=== PATIENT | male | born 1950 | race African-American/Black ===

== ENCOUNTER 2017-10-27 15:55 | Emergency (ER) | payer MEDICARE, MEDICAID ==
[~2017-10-27] VITALS: Ht 188 cm; Wt 113.0 kg
[~2017-10-27 15:55] MED LIST: AMLO10TA4 PO; APIX5TAB PO; ARIP30TA2 PO; ASPI-1159 PO; ATOR20TA PO; CHOL20004 PO; LEVO137T2 PO; LOSA50TA20 PO
[2017-10-27 17:40] LABS: EOSINOPHILS % 3.4 % (0.0-5.0); LYMPHOCYTES % 29.6 % (20.0-50.0); MEAN CORPUSCULAR HEMOGLOBIN 27.9 pg (28.0-32.0); MEAN CORPUSCULAR VOLUME 85.8 fL (80.0-94.0); MEAN PLATELET VOLUME 9.3 fl (7.4-10.4); MONOCYTES % 9.7 % (2.0-8.0); NEUTROPHILS % 56.3 % (40.0-76.0); PLATELET 211 x1000/uL (130-400); RED BLOOD CELL COUNT 4.31 mill/uL (4.7-6.1); RED CELL DISTRIBUTION WIDTH 13.2 % (11.6-14.6)
[2017-10-27 17:45] LABS: CHLORIDE 108 mEq/L (98-107)
[2017-10-27 17:52] LABS: INR 1.1; PARTIAL THROMBOPLASTIN TIME 28.7 sec (23.4-31.0); PROTHROMBIN TIME 10.7 sec (9.1-11.1)
[2017-10-27 20:49] VITALS: BP 128/78
== END 2017-10-27 20:51 | disposition home or self-care (01) ==
LOC: ER 15:55
DX: E87.5 Hyperkalemia (principal); E11.9 Type 2 diabetes mellitus without complications; I10 Essential (primary) hypertension; E03.9 Hypothyroidism, unspecified; Z95.0 Presence of cardiac pacemaker; Z79.82 Long term (current) use of aspirin
CPT/HCPCS: 36415; 71045; 80053; 84484; 85025; 85610; 85730; 93005; 99285

== ENCOUNTER 2021-12-08 15:49 | Inpatient (IN) | payer MEDICARE, MEDICAID ==
[~2021-12-08] VITALS: Ht 185.4 cm; Wt 99.8 kg
[~2021-12-08 15:49] MED LIST changes: -ASPI-1159 PO; +ASPI-1497 PO; -LOSA50TA20 PO; +LOSA50TA41 PO
[2021-12-08] MEDS ORDERED: MAGNESIUM/ALUMINUM HYDROXIDE/SIMETHICONE 30ML UDC PO STA (17:00)
[2021-12-08] MEDS ORDERED: SODIUM CHLORIDE 0.9% 1,000 ML IV ONE (17:00)
[2021-12-08] MEDS ORDERED: ONDANSETRON HCL 4MG/2ML INJ IV STA (17:00)
[2021-12-08 17:16] LABS: BASOPHILS % 0.3 % (0.0-2.0); EOSINOPHILS % 2.3 % (0.0-5.0); HEMATOCRIT. 34.3 % (42.0-52.0); HEMOGLOBIN. 10.8 g/dL (14.0-18.0); LYMPHOCYTES % 16.3 % (20.0-50.0); MEAN CORPUSCULAR HEMOGLOBIN 27.6 pg (28.0-32.0); MEAN PLATELET VOLUME 9.2 fl (7.4-10.4); MONOCYTES % 10.2 % (2.0-8.0); NEUTROPHILS % 70.9 % (40.0-76.0); PLATELET 215 x1000/uL (130-400); RED CELL DISTRIBUTION WIDTH 14.4 % (11.6-14.6)
[2021-12-08 17:30] LABS: INR 1.1; PROTHROMBIN TIME 11.5 sec (9.6-11.0)
[2021-12-08 17:38] LABS: CHLORIDE 107 mEq/L (98-107); ETHANOL BLOOD < 10 mg/dL
[2021-12-08] MEDS ORDERED: CEFTRIAXONE 1 G PREMIX 50 ML IV NR (19:45)
[2021-12-08] MEDS ORDERED: CLONIDINE 0.1MG TABLET PO PRN (21:15)
[2021-12-08] MEDS ORDERED: ACETAMINOPHEN 325MG TABLET PO PRN ×2 (21:15)
[2021-12-08] MEDS ORDERED: ONDANSETRON HCL 4MG/2ML INJ IV PRN (21:15)
[2021-12-08] MEDS ORDERED: IPRATROPIUM/ALBUTEROL 0.5-3(2.5)MG/3ML NEB HHN PRN (21:15)
[2021-12-08] MEDS ORDERED: DOCUSATE SODIUM 100MG CAPSULE PO PRN (21:15)
[2021-12-08] MEDS ORDERED: GUAIFENESIN 200MG/10ML SUGAR FREE UDC PO PRN (21:15)
[2021-12-08 21:16] LABS: CLARITY URINE CLEAR (CLEAR); COLOR URINE YELLOW (YELLOW); KETONES URINE NEGATIVE (NEGATIVE); LEUKOCYTE ESTERASE URINE NEGATIVE (NEGATIVE); NITRITE URINE NEGATIVE (NEGATIVE); OCCULT BLOOD URINE TRACE (NEGATIVE); PROTEIN URINE 3+ (NEGATIVE); SPECIFIC GRAVITY URINE 1.012 (1.005-1.030); UROBILINOGEN URINE 0.2 E.U./dL (0.2-1.0)
[2021-12-08] MEDS ORDERED: DEXTROSE 50% WATER 50ML SYRINGE IV PRN (21:30)
[2021-12-08] MEDS: AMLODIPINE 10MG TABLET PO SCH (22:04)
[2021-12-08] MEDS: APIXABAN 5 MG TABLET PO SCH (22:04)
[2021-12-08] MEDS: SODIUM CHLORIDE 0.9% 1,000 ML IV SCH (23:30)
[2021-12-09 01:01] LABS: CREATINE KINASE 271 IU/L (39-308)
[2021-12-09 02:09] VITALS: BP 147/72
[2021-12-09 04:00] VITALS: BP_SYST 122; BP_SYST 142; BP_DIAS 67; BP_DIAS 74
[2021-12-09] MEDS: LEVOTHYROXINE SODIUM 137MCG TABLET PO SCH ×2 (06:00→09:06)
[2021-12-09] MEDS: SODIUM CHLORIDE 0.9% 1,000 ML IV SCH ×2 (06:05→17:35)
[2021-12-09] MEDS: BLOOD SUGAR DIAGNOSTIC STRIP TEST SCH ×4 (06:05→21:00)
[2021-12-09] MEDS: INSULIN LISPRO 100 UNITS/ML SUBCUT SCH ×4 (06:15→21:00)
[2021-12-09 06:30] LABS: BASOPHILS % 0.4 % (0.0-2.0); EOSINOPHILS % 2.5 % (0.0-5.0); HEMATOCRIT. 31.8 % (42.0-52.0); HEMOGLOBIN. 10.6 g/dL (14.0-18.0); LYMPHOCYTES % 22.7 % (20.0-50.0); MEAN CORPUSCULAR HEMOGLOBIN 27.8 pg (28.0-32.0); MEAN CORPUSCULAR VOLUME 83.9 fL (80.0-94.0); MEAN PLATELET VOLUME 9.7 fl (7.4-10.4); MONOCYTES % 11.8 % (2.0-8.0); NEUTROPHILS % 62.6 % (40.0-76.0); PLATELET 226 x1000/uL (130-400); RED BLOOD CELL COUNT 3.79 mill/uL (4.7-6.1)
[2021-12-09 08:10] VITALS: BP 116/88
[2021-12-09 08:46] LABS: CHLORIDE 111 mEq/L (98-107); CREATINE KINASE 295 IU/L (39-308); HDL CHOLESTEROL 58 mg/dL (40-59); LDL CHOLESTEROL 105 mg/dL (5-100); T4 FREE 0.82 ng/dL (0.76-1.46); TOTAL IRON BINDING CAPACITY 191 ug/dL (250-450)
[2021-12-09] MEDS ORDERED: LOSARTAN POTASSIUM 50 MG TABLET PO SCH (09:00)
[2021-12-09] MEDS: AMLODIPINE 10MG TABLET PO SCH (09:00)
[2021-12-09] MEDS ORDERED: LEVOTHYROXINE SODIUM 137MCG TABLET PO SCH (09:00)
[2021-12-09] MEDS: APIXABAN 5 MG TABLET PO SCH ×2 (09:55→17:36)
[2021-12-09] MEDS: ASPIRIN 81MG EC TABLET PO SCH (09:55)
[2021-12-09] MEDS: FAMOTIDINE 20MG TABLET PO SCH (09:58)
[2021-12-09 12:00] VITALS: BP 143/84
[2021-12-09 15:58] VITALS: BP 136/84
[2021-12-09 16:49] LABS: TRIOIODOTHYRONINE TOTAL 0.52 ng/ml (0.60-1.81)
[2021-12-09 20:00] VITALS: BP 137/82
[2021-12-09] MEDS: SODIUM CHLORIDE 0.45% 1,000 ML IV SCH (21:35)
[2021-12-09] MEDS: ATORVASTATIN CALCIUM 20MG TABLET PO SCH (21:42)
[2021-12-09] MEDS: DOCUSATE SODIUM 250MG CAPSULE PO SCH (21:47)
[2021-12-09] MEDS: ARIPIPRAZOLE 5MG TABLET PO SCH (21:48)
[2021-12-10] VITALS (8 sets, daily range): BP systolic 117–159; BP diastolic 60–96
[2021-12-10] MEDS: INSULIN LISPRO 100 UNITS/ML SUBCUT SCH ×4 (06:08→20:35)
[2021-12-10] MEDS: BLOOD SUGAR DIAGNOSTIC STRIP TEST SCH ×4 (06:08→20:35)
[2021-12-10 07:16] LABS: BASOPHILS % 0.7 % (0.0-2.0); EOSINOPHILS % 5.9 % (0.0-5.0); HEMATOCRIT. 28.6 % (42.0-52.0); HEMOGLOBIN. 9.7 g/dL (14.0-18.0); LYMPHOCYTES % 29.2 % (20.0-50.0); MEAN CORPUSCULAR HEMOGLOBIN 28.3 pg (28.0-32.0); MEAN CORPUSCULAR VOLUME 83.9 fL (80.0-94.0); MEAN PLATELET VOLUME 9.8 fl (7.4-10.4); MONOCYTES % 12.8 % (2.0-8.0); NEUTROPHILS % 51.4 % (40.0-76.0); PLATELET 214 x1000/uL (130-400); RED BLOOD CELL COUNT 3.41 mill/uL (4.7-6.1); RED CELL DISTRIBUTION WIDTH 13.9 % (11.6-14.6)
[2021-12-10] MEDS: LEVOTHYROXINE SODIUM 137MCG TABLET PO SCH (07:40)
[2021-12-10] MEDS: ASPIRIN 81MG EC TABLET PO SCH (09:24)
[2021-12-10] MEDS: FAMOTIDINE 20MG TABLET PO SCH (09:24)
[2021-12-10] MEDS: APIXABAN 5 MG TABLET PO SCH (09:24)
[2021-12-10] MEDS: DOCUSATE SODIUM 250MG CAPSULE PO SCH (09:24)
[2021-12-10] MEDS: BENAZEPRIL 10MG TABLET PO SCH ×2 (10:52→20:50)
[2021-12-10] MEDS: SODIUM CHLORIDE 0.45% 1,000 ML IV SCH (13:27)
[2021-12-10] MEDS: OLANZAPINE 10MG TABLET PO SCH (14:42)
[2021-12-10] MEDS: ARIPIPRAZOLE 5MG TABLET PO SCH (20:46)
[2021-12-10] MEDS: APIXABAN 2.5 MG TABLET PO SCH (20:51)
[2021-12-10] MEDS: ATORVASTATIN CALCIUM 20MG TABLET PO SCH (20:51)
[2021-12-11] VITALS: BP 131/77
[2021-12-11 04:00] VITALS: BP 160/80
[2021-12-11] MEDS: SODIUM CHLORIDE 0.45% 1,000 ML IV SCH (06:32)
[2021-12-11] MEDS: INSULIN LISPRO 100 UNITS/ML SUBCUT SCH ×2 (06:32→11:59)
[2021-12-11] MEDS: BLOOD SUGAR DIAGNOSTIC STRIP TEST SCH ×2 (06:32→11:58)
[2021-12-11] MEDS: LEVOTHYROXINE SODIUM 137MCG TABLET PO SCH (06:32)
[2021-12-11 08:00] VITALS: BP 159/81
[2021-12-11] MEDS: ASPIRIN 81MG EC TABLET PO SCH (09:06)
[2021-12-11] MEDS: BENAZEPRIL 10MG TABLET PO SCH (09:06)
[2021-12-11] MEDS: OLANZAPINE 10MG TABLET PO SCH (09:06)
[2021-12-11] MEDS: FAMOTIDINE 20MG TABLET PO SCH (09:07)
[2021-12-11] MEDS: APIXABAN 2.5 MG TABLET PO SCH (09:07)
[2021-12-11] MEDS: DOCUSATE SODIUM 250MG CAPSULE PO SCH (09:08)
[2021-12-11 12:00] VITALS: BP 116/58
[2021-12-11] MEDS ORDERED: SORBITOL 70% SOLN 30ML PO NR (13:30)
[2021-12-11] MEDS ORDERED: SODIUM POLYSTYRENE SULFONATE 15 G/60 ML BOT PO NR (13:30)
[2021-12-11 16:00] VITALS: BP 112/65
[2021-12-11 16:49] VITALS: BP 112/65
[2021-12-11] MEDS ORDERED: AMLODIPINE 5MG TABLET PO SCH (17:00)
[2021-12-11] MEDS ORDERED: BENAZEPRIL 10MG TABLET PO SCH (17:00)
== END 2021-12-11 17:52 | disposition home or self-care (01) | DRG 74 ==
LOC: ER 15:49 → MICUSO 19:56 → EDBEDREQTM 19:58 → EDBEDREQ 19:58 → EDBEDREQSVC 19:58 → 8WST 12-09 01:29
PROVIDERS: ADMIT Internal Medicine; ATTEND Internal Medicine
DX: G90.8 Other disorders of autonomic nervous system (principal); N17.9 Acute kidney failure, unspecified; I13.2 Hypertensive heart and chronic kidney disease with heart failure and with stage 5 chronic kidney disease, or end stage renal disease; I50.30 Unspecified diastolic (congestive) heart failure; N18.5 Chronic kidney disease, stage 5; E86.0 Dehydration; E11.22 Type 2 diabetes mellitus with diabetic chronic kidney disease; I49.5 Sick sinus syndrome; N40.0 Benign prostatic hyperplasia without lower urinary tract symptoms; E03.9 Hypothyroidism, unspecified; I48.0 Paroxysmal atrial fibrillation; K56.41 Fecal impaction; D63.1 Anemia in chronic kidney disease; E87.5 Hyperkalemia; F31.9 Bipolar disorder, unspecified; E78.5 Hyperlipidemia, unspecified; Z79.899 Other long term (current) drug therapy; Z86.718 Personal history of other venous thrombosis and embolism; Z79.01 Long term (current) use of anticoagulants; Z79.82 Long term (current) use of aspirin; Z95.0 Presence of cardiac pacemaker
CPT/HCPCS: 36415; 71045; 74176; 76770; 80048; 80053; 80061; 80320; 81003; 82550; 82607; 82728; 82746; 82962; 83036; 83540; 83550; 84439; 84443; 84480; 84484; 85025; 93005; 93306; 93880; 97162; 99285; J0696; J1815; J2405; J7030; G0480

== ENCOUNTER 2025-02-11 09:01 | Inpatient (IN) | payer MEDICARE, MEDICAID ==
[~2025-02-11] VITALS: Ht 185.4 cm; Wt 83.5 kg
[~2025-02-11 09:01] MED LIST changes: +AMLO-905 PO; -AMLO10TA4 PO; +CALC667T6 PO; +DOCU-405 PO; +LEVO100T9 PO; +LEVO50TA8 PO; +NIFE-32 PO; +OLAN10TA72 PO; +OLAN5TAB74 PO; +TRAZ-251 PO
[2025-02-11 09:06] VITALS: O2SAT 100
[2025-02-11] MEDS: PIPERACILLIN/TAZO 3.375G/50ML 50 ML IV ONE (09:38)
[2025-02-11] MEDS: SODIUM CHLORIDE 0.9% 1,000 ML IV ONE (09:38)
[2025-02-11] MEDS ORDERED: NOREPINEPHRINE 8MG/250ML PMX 250 ML IV SCH (10:00)
[2025-02-11] MEDS: VANCOMYCIN 1G PREMIX 200 ML IV ONE (10:06)
[2025-02-11 10:07] LABS: INR 1.0
[2025-02-11 10:10] LABS: CREATININE 4.1 mg/dL (0.6-1.3); UREA NITROGEN BLOOD 13 mg/dL (9-23)
[2025-02-11 10:11] LABS: PROTEIN TOTAL 6.8 g/dL (6.0-8.3)
[2025-02-11 10:12] LABS: ASPARTATE AMINOTRANSFERASE 18 IU/L (<34); BILIRUBIN DIRECT 0.1 mg/dL (<=3.0); BILIRUBIN TOTAL 0.3 mg/dL (0.1-1.0)
[2025-02-11 10:38] LABS: BASOPHILS % 0.6 % (0.0-2.0); EOSINOPHILS % 2.3 % (0.0-5.0); HEMATOCRIT. 29.0 % (42.0-52.0); HEMOGLOBIN. 9.4 g/dL (14.0-18.0); LYMPHOCYTES % 31.2 % (20.0-50.0); MEAN PLATELET VOLUME 8.0 fl (7.4-10.4); MONOCYTES % 13.4 % (2.0-8.0); NEUTROPHILS % 52.5 % (40.0-76.0); PLATELET 169 x1000/uL (130-400); RED BLOOD CELL COUNT 3.20 mill/uL (4.7-6.1); RED CELL DISTRIBUTION WIDTH 15.0 % (11.6-14.6)
[2025-02-11] MEDS ORDERED: ONDANSETRON HCL 4MG/2ML INJ IV PRN (11:45)
[2025-02-11] MEDS ORDERED: IPRATROPIUM/ALBUTEROL 0.5-3(2.5)MG/3ML NEB HHN PRN (11:45)
[2025-02-11] MEDS ORDERED: ACETAMINOPHEN 650MG/20.3ML UDC GT PRN (11:45)
[2025-02-11] MEDS ORDERED: ACETAMINOPHEN 650MG SUPP PR PRN (11:45)
[2025-02-11] MEDS ORDERED: DEXTROSE 50% WATER 50ML SYRINGE IV PRN (12:00)
[2025-02-11] MEDS ORDERED: POTASSIUM CHLORIDE 20 MEQ in DEXT 5% WATER 90 ML IV ONE (12:00)
[2025-02-11] MEDS ORDERED: LIDOCAINE HCL 1% 10 MG/ML 10ML VIAL ONE (12:16)
[2025-02-11] MEDS: BLOOD SUGAR DIAGNOSTIC STRIP TEST SCH (13:00)
[2025-02-11] MEDS ORDERED: CALCIUM CHLORIDE 1GM/10ML SYR IV SCH (13:00)
[2025-02-11] MEDS: INSULIN LISPRO 100 UNITS/ML SUBCUT SCH (13:20)
[2025-02-11 13:55] VITALS: BP 116/72; PULSE 60; RESP 18; TEMP 36.1; TEMP 36.14; O2SAT 100
[2025-02-11] MEDS: AMLODIPINE 10MG TABLET PO SCH (15:06)
[2025-02-11] MEDS: KCL 20MEQ/100ML PREMIX 100 ML IV SCH (15:08)
[2025-02-11] MEDS: MIDODRINE HCL 5MG TABLET PO SCH (15:08)
[2025-02-11 16:00] VITALS: BP 102/60; PULSE 75; RESP 18; TEMP 36.2; O2SAT 100
[2025-02-11] MEDS ORDERED: CALCIUM GLUCONATE 1GM PREMIX 50ML IV SCH (18:00)
[2025-02-11 20:00] VITALS: BP 128/48; PULSE 65; RESP 20; TEMP 35.8; O2SAT 98
[2025-02-11] MEDS: OLANZAPINE 5MG TABLET PO SCH (20:44)
[2025-02-11] MEDS: TRAZODONE HCL 50MG TABLET PO SCH (20:44)
[2025-02-11] MEDS: FERROUS SULFATE 325MG TABLET PO SCH (20:44)
[2025-02-11] MEDS: APIXABAN 2.5 MG TABLET PO SCH (20:45)
[2025-02-11] MEDS: ATORVASTATIN CALCIUM 20MG TABLET PO SCH (20:45)
[2025-02-11 20:51] LABS: CREATININE 4.6 mg/dL (0.6-1.3); UREA NITROGEN BLOOD 25 mg/dL (9-23)
[2025-02-11 20:52] LABS: TROPONIN I HIGH SENSITIVITY 5 ng/L (3.0-53)
[2025-02-11 20:53] LABS: PHOSPHORUS 2.3 mg/dL (2.5-4.9)
[2025-02-11 20:56] LABS: FOLIC ACID (FOLATE) SERUM 16.60 ng/mL (>5.38); VITAMIN B12 SERUM 1209 pg/mL (211-911)
[2025-02-12 08:00] VITALS: BP 99/55; PULSE 63; RESP 18; TEMP 36.3; O2SAT 97
[2025-02-12] MEDS: LEVOTHYROXINE SODIUM 100MCG TABLET PO SCH (08:49)
[2025-02-12 12:00] VITALS: BP 128/45; PULSE 62; RESP 18; TEMP 36.6; O2SAT 96
[2025-02-12 16:00] VITALS: BP 92/51; PULSE 64; RESP 18; TEMP 36.1; O2SAT 94
[2025-02-12 17:20] VITALS: BP 131/43; RESP 18; O2SAT 95
[2025-02-12 20:00] VITALS: BP 111/61; PULSE 74; RESP 20; TEMP 36.3; O2SAT 99
[2025-02-13] VITALS (16 sets, daily range): BP systolic 102–158; BP diastolic 35–91; PULSE 51–67; RESP 16–20; TEMP 36.2–37.00296; O2SAT 95–99
[2025-02-13 07:42] LABS: UREA NITROGEN BLOOD 43 mg/dL (9-23)
[2025-02-13 07:44] LABS: PHOSPHORUS 4.4 mg/dL (2.5-4.9)
[2025-02-13 07:57] LABS: BASOPHILS % 0.9 % (0.0-2.0); EOSINOPHILS % 3.9 % (0.0-5.0); HEMATOCRIT. 29.8 % (42.0-52.0); HEMOGLOBIN. 10.0 g/dL (14.0-18.0); LYMPHOCYTES % 36.1 % (20.0-50.0); MEAN PLATELET VOLUME 8.7 fl (7.4-10.4); MONOCYTES % 11.6 % (2.0-8.0); NEUTROPHILS % 47.5 % (40.0-76.0); PLATELET 178 x1000/uL (130-400); RED BLOOD CELL COUNT 3.28 mill/uL (4.7-6.1); RED CELL DISTRIBUTION WIDTH 14.7 % (11.6-14.6)
[2025-02-13 08:07] LABS: CREATININE 6.7 mg/dL (0.6-1.3)
[2025-02-13] MEDS ORDERED: EPOETIN ALFA 4,000 UNITS/ML VIAL SUBCUT SCH (21:00)
[2025-02-14] VITALS: BP 116/56; PULSE 66; RESP 19; TEMP 36.7; O2SAT 98
[2025-02-14 04:00] VITALS: BP 123/58; PULSE 60; RESP 20; TEMP 36.9; O2SAT 98
[2025-02-14 08:00] VITALS: BP 193/100; PULSE 65; RESP 18; TEMP 37.1; O2SAT 98
[2025-02-14] MEDS: CLONIDINE 0.1MG TABLET PO PRN (08:41)
== END 2025-02-14 11:01 | DRG 73 ==
LOC: ER 09:01 → EDBEDREQ 09:10 → 7WST 10:42 → EDBEDREQ 10:48 → EDBEDREQTM 10:48 → ENRESERV 14:09
PROVIDERS: ADMIT Internal Medicine; ATTEND Internal Medicine
PROC: 02HV33Z Insertion of Infusion Device into Superior Vena Cava, Percutaneous Approach (ICD-10-PCS; 2025-02-11)
PROC: B548ZZA Ultrasonography of Superior Vena Cava, Guidance (ICD-10-PCS; 2025-02-11)
PROC: 5A1D70Z Performance of Urinary Filtration, Intermittent, Less than 6 Hours Per Day (ICD-10-PCS; principal; 2025-02-13)
PROC: 4B02XSZ Measurement of Cardiac Pacemaker, External Approach (ICD-10-PCS; 2025-02-13)
DX: E11.43 Type 2 diabetes mellitus with diabetic autonomic (poly)neuropathy (principal); N18.6 End stage renal disease; I13.2 Hypertensive heart and chronic kidney disease with heart failure and with stage 5 chronic kidney disease, or end stage renal disease; E87.20 Acidosis, unspecified; I50.32 Chronic diastolic (congestive) heart failure; I49.5 Sick sinus syndrome; D63.1 Anemia in chronic kidney disease; I48.91 Unspecified atrial fibrillation; E86.0 Dehydration; Z99.2 Dependence on renal dialysis; Z79.01 Long term (current) use of anticoagulants; E11.22 Type 2 diabetes mellitus with diabetic chronic kidney disease; E03.9 Hypothyroidism, unspecified; F31.9 Bipolar disorder, unspecified; E87.6 Hypokalemia; E87.8 Other disorders of electrolyte and fluid balance, not elsewhere classified; Z79.4 Long term (current) use of insulin; Z79.899 Other long term (current) drug therapy; Z86.718 Personal history of other venous thrombosis and embolism; Z95.0 Presence of cardiac pacemaker; Z99.3 Dependence on wheelchair
CPT/HCPCS: 36415; 36573; 71045; 80048; 80076; 82550; 82607; 82728; 82746; 82962; 83036; 83540; 83550; 83605; 83735; 83880; 84100; 84145; 84443; 84484; 85025; 85044; 90935; 93005; 93306; 93970; 96365; 96367; 99291; A4606; C1725; J0612; J1815; J2003; J2543; J3373; J3480; J3490; J7030; J7060